=== PATIENT | male | born 1985 | race Caucasian/White ===

== ENCOUNTER 2017-03-26 19:35 | Emergency (ER) | payer MEDICAID | END 2017-03-27 03:03 | disposition home or self-care (01) | LOC: FTE 03-27 03:03 | DX: J20.9 Acute bronchitis, unspecified (principal) | CPT/HCPCS: 99284; Z7502 ==

== ENCOUNTER 2017-10-05 20:46 | Emergency (ER) | payer MEDICAID | END 2017-10-05 22:10 | disposition home or self-care (01) | LOC: FTE 20:46 | DX: J40 Bronchitis, not specified as acute or chronic (principal) | CPT/HCPCS: 71045; 93005; 99284-25 ==

== ENCOUNTER 2018-03-14 19:58 | Emergency (ER) | payer MEDICAID ==
[2018-03-14] MEDS: LIDOCAINE 1% (MPF) 5 ML VIAL INFIL (22:16)
[2018-03-14] MEDS: IBUPROFEN 600 MG TAB PO (22:16)
[2018-03-14] MEDS: DIPHTH/TET/ACEL PERTUSS (ADULT) 0.5 ML VIAL IM* (22:33)
== END 2018-03-14 23:32 | disposition home or self-care (01) ==
LOC: FTE 23:32
DX: S71.111A Laceration without foreign body, right thigh, initial encounter (principal); W26.0XXA Contact with knife, initial encounter; Y92.89 Other specified places as the place of occurrence of the external cause; Z23 Encounter for immunization
CPT/HCPCS: 12001; 90471; 90715; 99283-25

== ENCOUNTER 2018-03-16 19:07 | Emergency (ER) | payer MEDICAID | END 2018-03-16 21:21 | disposition home or self-care (01) | LOC: FTE 19:07 | DX: Z48.01 Encounter for change or removal of surgical wound dressing (principal) | CPT/HCPCS: 99281; Z7502 ==

== ENCOUNTER 2018-03-23 17:23 | Emergency (ER) | payer MEDICAID | END 2018-03-23 19:38 | disposition home or self-care (01) | LOC: FTE 17:23 | DX: Z48.02 Encounter for removal of sutures (principal) | CPT/HCPCS: 99281; Z7502 ==

== ENCOUNTER 2018-05-23 09:25 | Emergency (ER) | payer MEDICAID ==
[2018-05-23] MEDS: KETOROLAC 30 MG INJ IM (10:28)
== END 2018-05-23 11:07 | disposition home or self-care (01) ==
LOC: FTE 09:25
DX: M25.561 Pain in right knee (principal)
CPT/HCPCS: 73562; 96372; 99284-25